=== PATIENT | female | born 1950 | race Caucasian/White ===

== ENCOUNTER 2017-09-02 08:39 | Emergency (ER) | payer MEDICARE, OTHER ==
--- NOTE | 2017-09-02 09:44 | EDM.PDOC ---
ED HPI GENERAL MEDICAL PROBLEM - General Chief Complaint: Skin Complaint Stated Complaint: NOSE BLEED DUE TO CYST Time Seen by Provider: 09/02/17 09:42 Source of Information: Reports: Patient History Limitations: Reports: No Limitations - History of Present Illness INITIAL COMMENTS - FREE TEXT/NARRATIVE: Pt arrived with a area under the rt side of her nose.-- this has been bleeding for the past 5-6 days on and off. She states it started bleeding in the midle of the nite and it would not stop. Onset: Other ( started several days ago. ) Duration: Hour(s): Location: Reports: Face Associated Symptoms: Reports: No Other Symptoms - Related Data Allergies Allergy/AdvReac Type Severity Reaction Status Date / Time No Known Allergies Allergy Verified 09/02/17 08:53 Home Meds: Home Meds Estradiol [Estrace] 2.5 mg PO ASDIRECTED 09/02/17 [History] Simvastatin [Zocor] 20 mg PO BEDTIME 09/02/17 [History] Past Medical History HEENT History: Reports: Impaired Vision Cardiovascular History: Reports: High Cholesterol Dermatologic History: Reports: Psoriasis - Past Surgical History HEENT Surgical History: Reports: Tonsillectomy Other GI Surgeries/Procedures: ABD TUMORS X 2 BENIGN Female Surgical History: Reports: D&C, Hysterectomy Musculoskeletal Surgical History: Reports: Arthroscopic Knee, Knee Replacement Other Musculoskeletal Surgeries/Procedures:: R UPPER POSTERIOR THIGH TUMOR BENIGN, BILAT SHOULDER FATTY TUMOR BENIGN Social & Family History - Tobacco Use Smoking Status *Q: Unknown Ever Smoked ED ROS GENERAL - Review of Systems Review Of Systems: See Below Constitutional: Reports: No Symptoms HEENT: Reports: No Symptoms Respiratory: Reports: No Symptoms Cardiovascular: Reports: No Symptoms Endocrine: Reports: No Symptoms GI/Abdominal: Reports: No Symptoms : Reports: No Symptoms Musculoskeletal: Reports: No Symptoms Skin: Reports: Other ( bleeding from a facial lesion ) ED EXAM, SKIN/RASH Exam: See Below Text/Narrative:: Pt i\is having bleeding from a area under the nose . This l\esion has bleed off and on for several days. Exam Limited By: No Limitations General Appearance: Alert Ears: Normal TMs Nose: Normal Inspection Throat/Mouth: Normal Inspection Head: Atraumatic Neck: Normal Inspection Skin: Other (lesion under the rt side of the n\ose. There is a vasular tissue hanging out of the center. This was clipped off and sent to path, Caudery was attempted to stop the bleeding but it was bleeding enough that it was too wet for the caudery, 3 stitches were put in and the bleeding stopped. The tissue will be sent for path. Will have pt see the surgeon in 5 days to remove the stitches, see if there is fur\rther bleeding and if there is a excision of the whole lesion will need to be done. the path on the tissue should be back. , ) Course - Vital Signs Last Recorded V/S: Last Vital Signs Temp 36.9 C 09/02/17 08:52 Pulse 75 09/02/17 08:52 Resp 15 09/02/17 08:52 BP 154/83 H 09/02/17 08:52 Pulse Ox 98 09/02/17 08:52 - Orders/Labs/Meds Orders: Active Orders 24 hr Category Date Time Status Bacitracin [Bacitracin Oint 1 GM] Med 09/02/17 10:16 Once 1 dose TOP ONETIME ONE Meds: Medications Discontinued Medications Generic Name Dose Route Start Last Admin Trade Name Rody PRN Reason Stop Dose Admin Lidocaine HCl 5 ml 09/02/17 09:31 Xylocaine-Mpf 1% INJECT 09/02/17 09:32 ONETIME ONE Departure - Departure Time of Disposition: 10:16 Disposition: Home, Self-Care 01 Condition: Fair Clinical Impression: Hemorrhage of skin lesion - Discharge Information Referrals: Anita Arango MD [Primary Care Provider] - Forms: ED Department Discharge Care Plan Goals: apply smal\l pressure dressing and bacatracin to the area. APPT ON August AT 12:[address] ZHENG AT [facility] IN [place]. rtc if problems. Pt will be notified of the path report. - My Orders Last 24 Hours: My Active Orders 09/02/17 10:16 Bacitracin [Bacitracin Oint 1 GM] 1 dose TOP ONETIME ONE - Assessment/Plan Last 24 Hours: My Active Orders 09/02/17 10:16 Bacitracin [Bacitracin Oint 1 GM] 1 dose TOP ONETIME ONE
[2017-09-02] MEDS: Bacitracin Oint 1 GM U/D Packet TOP ONE (10:32)
== END 2017-09-02 10:37 | disposition home or self-care (01) ==
LOC: JP.ED 08:39
DX: L98.9 Disorder of the skin and subcutaneous tissue, unspecified (principal); E78.00 Pure hypercholesterolemia, unspecified
CPT/HCPCS: 12011; 88305; 99282-25; 99283-25

== ENCOUNTER 2021-11-20 07:03 | Inpatient (IN) | payer MEDICARE, OTHER ==
[2021-11-20] MEDS ORDERED: Acetaminophen 500 MG Tab PO ONE (07:30)
[2021-11-20] MEDS ORDERED: Scopolamine 1.5 MG Transdermal Patch TOP SCH (07:30)
[2021-11-20] MEDS: Dextrose 5%-Lactated Ringers 1,000 ML IV SCH ×2 (08:11→15:26)
[2021-11-20] MEDS ORDERED: HYDROmorphone/Normal Saline 6 MG/30 ML PCA Vial IV PRN (08:23)
[2021-11-20] MEDS ORDERED: Ondansetron 4 MG/2 ML SDV IVPUSH PRN ×2 (08:23→12:00)
[2021-11-20] MEDS ORDERED: Naloxone 0.4 MG/ML SDV IVPUSH PRN (08:23)
[2021-11-20] MEDS ORDERED: diphenhydrAMINE 50 MG/ML SDV IVPUSH PRN (08:23)
[2021-11-20] MEDS ORDERED: diphenhydrAMINE 25 MG Cap PO PRN (08:23)
[2021-11-20] MEDS ORDERED: ceFAZolin 2 GM in Sodium Chloride 0.9% 50 ML IV ONE (08:30)
[2021-11-20] MEDS ORDERED: fentaNYL 250 MCG/5 ML SDV ONE (08:39)
[2021-11-20] MEDS ORDERED: Ketamine 17 MG in Sodium Chloride 0.9% 19.83 ML IV SCH (08:45)
[2021-11-20] MEDS ORDERED: Ketamine 500 MG/5 ML MDV IV SCH (08:45)
[2021-11-20] MEDS ORDERED: Naloxone 0.4 MG/ML SDV IV PRN (09:00)
[2021-11-20] MEDS ORDERED: Dexamethasone 4 MG/ML SDV ONE (09:00)
[2021-11-20] MEDS ORDERED: Succinylcholine 200 MG/10 ML MDV ONE (09:00)
[2021-11-20] MEDS ORDERED: Neostigmine Methylsulfate 1 MG/ML 5 ML Syringe ONE (09:00)
[2021-11-20] MEDS ORDERED: Rocuronium 50 MG/5 ML Vial ONE (09:00)
[2021-11-20] MEDS ORDERED: Propofol 200 MG/20 ML SDV ONE (09:00)
[2021-11-20] MEDS ORDERED: Ondansetron 4 MG/2 ML SDV ONE (09:00)
[2021-11-20] MEDS ORDERED: Linezolid 600 MG/300 ML Premix Bag IRR ONE (09:15)
[2021-11-20] MEDS ORDERED: traZODone 50 MG Tab PO PRN (12:05)
[2021-11-20] MEDS ORDERED: tiZANidine 2 MG Tab PO PRN (12:06)
[2021-11-20] MEDS: SCOPOLAMINE PATCH CHECK TOP SCH (13:12)
[2021-11-20] MEDS: Acetaminophen 325 MG Tab PO SCH ×2 (14:11→20:26)
[2021-11-20] MEDS: ceFAZolin 2 GM in Sodium Chloride 0.9% 50 ML IV SCH (15:33)
[2021-11-20] MEDS ORDERED: atorvaSTATin 10 MG Tab PO SCH (21:00)
[2021-11-20] MEDS ORDERED: Famotidine 20 MG Tab PO SCH (21:00)
[2021-11-21] MEDS: Acetaminophen 325 MG Tab PO SCH ×2 (01:05→07:39)
[2021-11-21] MEDS: ceFAZolin 2 GM in Sodium Chloride 0.9% 50 ML IV SCH ×2 (01:05→07:38)
[2021-11-21] MEDS: Dextrose 5%-Lactated Ringers 1,000 ML IV SCH (01:09)
[2021-11-21] MEDS ORDERED: HYDROmorphone 2 MG Tab PO PRN (07:40)
[2021-11-21] MEDS ORDERED: Calcium Carbonate 500 MG Tab.Chew PO PRN (07:41)
[2021-11-21] MEDS: SCOPOLAMINE PATCH CHECK TOP SCH (08:32)
[2021-11-21] MEDS ORDERED: Lisinopril 10 MG Tab PO SCH (09:00)
[2021-11-21] MEDS ORDERED: Fluticasone NASAL Spray 16 GM Bottle NASBOTH SCH (09:00)
== END 2021-11-21 09:40 | disposition home or self-care (01) | DRG 627 ==
LOC: JP.SDS 07:03 → JP.MS 07:03 → EDSTATUS 10:15
PROVIDERS: ADMIT Surgery; ATTEND Surgery
PROC: 0GTG0ZZ Resection of Left Thyroid Gland Lobe, Open Approach (ICD-10-PCS; principal; 2021-11-20)
PROC: 0GTH0ZZ Resection of Right Thyroid Gland Lobe, Open Approach (ICD-10-PCS; 2021-11-20)
PROC: 0GBP0ZZ Excision of Left Inferior Parathyroid Gland, Open Approach (ICD-10-PCS; 2021-11-20)
DX: E04.2 Nontoxic multinodular goiter (principal); Z80.8 Family history of malignant neoplasm of other organs or systems; G43.909 Migraine, unspecified, not intractable, without status migrainosus; G89.29 Other chronic pain; M54.59 Other low back pain; I10 Essential (primary) hypertension; M19.042 Primary osteoarthritis, left hand; M19.041 Primary osteoarthritis, right hand; E78.5 Hyperlipidemia, unspecified; R73.9 Hyperglycemia, unspecified; Z90.710 Acquired absence of both cervix and uterus; Z96.653 Presence of artificial knee joint, bilateral; Z79.899 Other long term (current) drug therapy
CPT/HCPCS: 36415; 80048; 83735; 84100; 88305; 88307; 88341; 88342; A9270-GY; J0330; J0690; J1100; J1170; J1790; J2020; J2405; J2704; J2710; J3010; J3490; J7121